=== PATIENT | female | born 1960 | race Caucasian/White ===

== ENCOUNTER 2024-02-08 22:46 | Emergency (ER) | payer MEDICARE, MEDICAID, SELFPAY ==
[2024-02-08 22:58] VITALS: BP 121/79; PULSE 94; RESP 18; TEMP 36.5; O2SAT 95; BMI 36.3
[2024-02-08 23:08] LABS: Glucose Point of Care 541 mg/dL (70-110)
[2024-02-08 23:44] VITALS: BP 143/93; PULSE 99; RESP 18; O2SAT 99
[2024-02-08 23:44] LABS: Basophils % 0.6 %; Eosinophils # 0.2 10^3/uL (0.0-0.8); Eosinophils % 2.3 %; Hematocrit 47.3 % (36-47); Lymphocytes # 3.4 10^3/uL (0.8-4.8); Lymphocytes % 48.3 %; Mean Corpuscular HGB Conc 31.9 g/dL (30-55); Mean Corpuscular Hemoglobin 27.3 pg (27-33); Mean Corpuscular Volume 85.5 fl (85-98); Mean Platelet Volume 12.5 fL (7.4-10.4); Monocytes # 0.5 10^3/uL (0.2-0.9); Monocytes % 7.2 %; Neutrophils # 2.92 10^3/uL (1.8-7.7); Neutrophils % 41.3 %; Nucleated Red Blood Cells % 0 %; Platelet Count 279 10^3/cmm (157-399); Red Blood Count 5.53 10^6/uL (3.85-5.65); Red Cell Distribution Width 12.8 % (12.1-15.1); White Blood Count 7.06 10^3/uL (3.29-11.43)
[2024-02-08 23:45] LABS: Bilirubin Urine Negative (Negative); Blood Urine Negative (Negative); Glucose Urine UA 3+ (Normal); Ketones Urine Negative (Negative); Leukocyte Esterase Urine 2+ (Negative); Nitrate Urine Negative (Negative); Protein Urine Negative (Negative); Urine Appearance Cloudy (CLEAR); Urine Color Yellow (Yellow); Urobilinogen Urine 0.2 mg/dL (Negative)
[2024-02-08 23:50] LABS: Add Urine Microscopic? YES; Bacteria Urine 4+ /hpf; Hyaline Casts Urine 1.21 /lpf; RBC Urine 0-2 /hpf (0-2); WBC Urine >100 /hpf (0-5)
[2024-02-08 23:52] LABS: Ketone (Acetest) Serum Negative (Negative)
[2024-02-09 00:01] LABS: Specific Gravity, Urine 1.032 (1.005-1.030)
[2024-02-09 00:01] LABS: Alanine Aminotransferase 11 U/L (0-33); Albumin Level 4.2 g/dL (3.5-5.2); Alkaline Phosphatase 118 U/L (35-105); Anion Gap 19.1 (5-19); Aspartate Amino Transferase 12 U/L (0-32); Blood Urea Nitrogen 27 mg/dL (8-23); Calcium 9.2 mg/dL (8.5-10.5); Carbon Dioxide 23 mmol/L (22-29); Chloride 92 mmol/L (98-107); Creatinine Clr Calc Pharmacy 67.8983; Globulin 3.3 g/dL (1.3-4.6); Glomerular Filtration Rate 49.8 mL/min (90-130); Magnesium 1.5 mg/dL (1.7-2.3); Osmolality Calculated 303 mOsm/kg (285-295); Potassium 4.1 mmol/L (3.5-5.1); Sodium 130 mmol/L (136-145); Total Bilirubin 0.3 mg/dL (0.15-1.2); Total Protein 7.5 g/dL (6.6-8.7)
[2024-02-09 00:03] VITALS: PULSE 86; O2SAT 95
[2024-02-09 00:03] LABS: Glucose 601 mg/dL (65-115)
[2024-02-09] MEDS: sodium chloride 0.9% 1,000 ML 999 ML IV (00:24)
[2024-02-09] MEDS: ciprofloxacin 500 mg Tablet PO (00:25)
[2024-02-09] MEDS: magnesium sulfate premix 1 GM/100 ML PIGGYBACK IV (00:28)
[2024-02-09 00:33] VITALS: PULSE 79; O2SAT 96
[2024-02-09] MEDS: insulin regular-human 100 units/1 mL 10 UNIT IVP (00:34)
--- NOTE | 2024-02-09 01:26 | ED_ITS ---
HPI - Recheck/Abnormal Lab/Rx 2 General: Chief Complaint: Recheck/Abnormal Lab/Rx Stated Complaint: Sugar 600 Time Seen by Provider: 02/08/24 23:30 History of Present Illness: Patient presents to the ER with elevated blood sugar. She said it was up in the 540s, she had blurred vision started yesterday and diarrhea that started today. Patient checked her blood sugar prior to arrival and it was approximately 600. Patient is on insulin as well as oral antidiabetic tablets. Related Data Previous Rx's Medication Instructions Recorded ciprofloxacin HCl 500 mg tablet 500 mg PO Q12H #20 tabs 02/09/24 Allergies Allergy/AdvReac Type Severity Reaction Status Date / Time Influenza Virus Vaccines Allergy Unknown Verified 02/08/24 23:04 Penicillins Allergy Unknown Verified 02/08/24 23:03 Review of Systems 2 General: Reports: 10 or more systems reviewed and unremarkable except in HPI and below Physical Exam 2 Const: COMMON NORMALS: no acute distress, average body habitus, patient oriented x3, no limitations, healthy appearing, alert and well nourished HENMT: COMMON NORMALS: normocephalic, atraumatic, hearing grossly normal bilaterally, external ears normal, Normal external nose present and moist oral mucous membranes HEAD & SCALP: normocephalic and atraumatic NOSE: Normal external nose present EXTERNAL EAR: Yes external ears normal Neck/C-Spine: COMMON NORMALS: no JVD Chest: COMMONS NORMALS: normal inspection of the chest and normal palpation of entire chest wall Resp: COMMON NORMALS: normal respiratory effort, No retractions, No use of accessory muscles and clear to auscultation bilaterally AUSCULTATION: clear to auscultation bilaterally Cardio: COMMON NORMALS: no JVD, regular rate, regular rhythm, S1 normal heart sound present, S2 normal heart sound present, No gallops present (Cardio), No clicks present (Cardio), No murmurs present (Cardio) and No rub (Cardio) R ATE: regular rate RHYTHM: regular rhythm HEART SOUNDS: S1 normal heart sound present and S2 normal heart sound present GI: COMMON NORMALS: Normal to inspection, nondistended, normoactive bowel sounds present, Soft to palpation, non-tender, No hepatosplenomegaly present and no masses PALPATION: Yes Soft to palpation and Yes No hepatosplenomegaly present Neuro: COMMON NORMALS: patient oriented x3 SENSORIUM/ORIENTATION: Yes alert Course 2 Vital Signs: Vital signs: Vital Signs Temperature 97.7 F 02/08/24 22:58 Pulse Rate 79 02/09/24 00:33 Respiratory Rate 18 02/08/24 23:44 Blood Pressure 143/93 02/08/24 23:44 Pulse Oximetry 96 02/09/24 00:33 Oxygen Delivery Me thod Room Air 02/08/24 23:44 MDM - Recheck/Abnormal Lab/Rx Medical Decision Making Patient was given 10 units of IV insulin as well as 1 L normal saline bolus, 1 g magnesium sulfate and Cipro 500 mg p.o. Patient had negative serum ketones, BUN/creatinine were 27 and 1.1, UA showed positive for urinary tract infection. Patient be discharged home on Cipro. Medical Records I reviewed the patient's medical records. Lab Data I reviewed the patient's lab results. 02/08/24 23:35 02/08/24 23:35 Laboratory Results WBC 7.06 10^3/uL (3.29-11.43) 02/08/24 23:35 RBC 5.53 10^6/uL (3.85-5.65) 02/08/24 23:35 Hgb 15.10 g/dL (11.27-16.99) 02/08/24 23:35 Hct 47.3 % (36-47) H 02/08/24 23:35 MCV 85.5 fl (85-98) 02/08/24 23:35 MCH 27.3 pg (27-33) 02/08/24 23:35 MCHC 31.9 g/dL (30-55) 02/08/24 23:35 RDW 12.8 % (12.1-15.1) 02/08/24 23:35 Plt Count 279 10^3/cmm (157-399) 02/08/24 23:35 MPV 12.5 fL (7.4-10.4) H 02/08/24 23:35 Neut % (Auto) 41.3 % 02/08/24 23:35 Lymph % (Auto) 48.3 % 02/08/24 23:35 [place] % (Auto) 7.2 % 02/08/24 23:35 Eos % (Auto) 2.3 % 02/08/24 23:35 Baso % (Auto) 0.6 % 02/08/24 23:35 Neut # (Auto) 2.92 10^3/uL (1.8-7.7) 02/08/24 23:35 Lymph # (Auto) 3.4 10^3/uL (0.8-4.8) 02/08/24 23:35 [place] # (Auto) 0.5 10^3/uL (0.2-0.9) 02/08/24 23:35 Eos # (Auto) 0.2 10^3/uL (0.0-0.8) 02/08/24 23:35 Baso # (Auto) 0.0 10^3/uL (0.0-0.1) 02/08/24 23:35 Nucleated RBC % (auto) 0 % 02/08/24 23:35 Nucleated RBCs # 0.0 /100WBC 02/08/24 23:35 Sodium 130 mmol/L (136-145) L 02/08/24 23:35 Potassium 4.1 mmol/L (3.5-5.1) 02/08/24 23:35 Chloride 92 mmol/L (98-107) L 02/08/24 23:35 Carbon Dioxide 23 mmol/L (22-29) 02/08/24 23:35 Anion Gap 19.1 (5-19) H 02/08/24 23:35 BUN 27 mg/dL (8-23) H 02/08/24 23:35 Creatinine 1.1 mg/dL (0.5-0.9) H 02/08/24 23:35 GFR Calculation 49.8 mL/min (90-130) L 02/08/24 23:35 Glucose 601 mg/dL (65-115) H* 02/08/24 23:35 POC Glucose 541 mg/dL (70-110) H* 02/08/24 22:57 Calculated Osmolality 303 mOsm/kg (285-295) H 02/08/24 23:35 Calcium 9.2 mg/dL (8.5-10.5) 02/08/24 23:35 Magnesium 1.5 mg/dL (1.7-2.3) L 02/08/24 23:35 Total Bilirubin 0.3 mg/dL (0.15-1.2) 02/08/24 23:35 AST 12 U/L (0-32) 02/08/24 23:35 ALT 11 U/L (0-33) 02/08/24 23:35 Alkaline Phosphatase 118 U/L (35-105) H 02/08/24 23:35 Total Protein 7.5 g/dL (6.6-8.7) 02/08/24 23:35 Albumin 4.2 g/dL (3.5-5.2) 02/08/24 23:35 Globulin 3.3 g/dL (1.3-4.6) 02/08/24 23:35 Urine Color Yellow (Yellow) 02/08/24 23:30 Urine Appearance Cloudy (CLEAR) A 02/08/24 23:30 Urine pH 5.0 (5-7) 02/08/24 23:30 Ur Specific [place] 1.032 (1.005-1.030) H 02/08/24 23:30 Urine Protein Negative (Negative) 02/08/24 23:30 Urine Glucose (UA) 3+ (Normal) H 02/08/24 23:30 Urine Ketones Negative (Negative) 02/08/24 23:30 Urine Blood Negative (Negative) 02/08/24 23:30 Urine Nitrate Negative (Negative) 02/08/24 23:30 Urine Bilirubin Negative (Negative) 02/08/24 23:30 Urine Urobilinogen 0.2 mg/dL (Negative) 02/08/24 23:30 Ur Leukocyte Esterase 2+ (Negative) A 02/08/24 23:30 Urine RBC 0-2 /hpf (0-2) 02/08/24 23:30 Urine WBC >100 /hpf (0-5) H 02/08/24 23:30 Ur Squamous Epith Cells 11-20 /hpf (0-5) 02/08/24 23:30 Amorphous Sediment Not Reportable 02/08/24 23:30 Urine Bacteria 4+ /hpf (NONE) H 02/08/24 23:30 Hyaline Casts 1.21 /lpf 02/08/24 23:30 Serum Ketones Negative (Negative) 02/08/24 23:35 No radiology studies performed this visit Discharge Plan Discharge Patient Disposition: Home Clinical Impression: Acute lower urinary tract infection, Hyperglycemia due to diabetes mellitus Condition: Stable Prescriptions: New ciprofloxacin HCl 500 mg tablet 500 mg PO Q12H Qty: 20 0RF Discharge Orders: Discharge ED (Routine); Ordered 02/09/24 Ordered By: Tanvir Flores Referrals: Elyssa Castillo DO [Primary Care Provider] - 1 week Patient Instructions: Diabetic Hyperglycemia (ED), Urinary Tract Infection - Women Activity Restrictions/Additional Instructions: Magnesium was mildly low, your urine showed you have a urinary tract infection, you are given 10 additional units of IV insulin to help lower your blood sugar. Please take all your antibiotics as directed. Please follow-up with your family practice physician within the next 7 days for further evaluation and treatment. Coding Level of Care Code ED Drilling Supervisor for Lindy Pablo
[2024-02-09 01:47] VITALS: BP 110/64; PULSE 81; O2SAT 96
[2024-02-09 01:49] LABS: Glucose Point of Care 264 mg/dL (70-110)
[2024-02-09 02:00] VITALS: BP 110/64; PULSE 81; O2SAT 96
== END 2024-02-09 02:01 | disposition home or self-care (01) ==
PROVIDERS: Emergency Provider Emergency Medicine; PCP Family Medicine
DX: E11.65 Type 2 diabetes mellitus with hyperglycemia (principal); N39.0 Urinary tract infection, site not specified
CPT/HCPCS: 36415; 36416; 80053; 81001; 82009; 82962; 83735; 85025; 96374; 96375; 99284; J1815; J3475; J7030

== ENCOUNTER 2024-02-09 18:25 | Emergency (ER) | payer MEDICARE, MEDICAID, SELFPAY ==
[2024-02-09 18:47] VITALS: BP 136/84; PULSE 91; RESP 16; TEMP 36.4; O2SAT 95; BMI 36.1
[2024-02-09 21:04] LABS: Basophils % 0.4 %; Eosinophils # 0.2 10^3/uL (0.0-0.8); Eosinophils % 2.3 %; Lymphocytes % 49.3 %; Mean Corpuscular HGB Conc 32.4 g/dL (30-55); Mean Corpuscular Hemoglobin 27.2 pg (27-33); Monocytes # 0.5 10^3/uL (0.2-0.9); Monocytes % 6.5 %; Neutrophils # 3.34 10^3/uL (1.8-7.7); Neutrophils % 41.3 %; Nucleated Red Blood Cells % 0 %; Platelet Count 288 10^3/cmm (157-399); Red Blood Count 5.36 10^6/uL (3.85-5.65); Red Cell Distribution Width 12.9 % (12.1-15.1); White Blood Count 8.11 10^3/uL (3.29-11.43)
[2024-02-09 21:17] LABS: Ketone (Acetest) Serum Negative (Negative)
[2024-02-09 21:20] LABS: Anion Gap 18.3 (5-19); Blood Urea Nitrogen 23 mg/dL (8-23); Calcium 9.3 mg/dL (8.5-10.5); Carbon Dioxide 24 mmol/L (22-29); Chloride 95 mmol/L (98-107); Creatinine Clr Calc Pharmacy 93.1591; Glucose 390 mg/dL (65-115); Osmolality Calculated 296 mOsm/kg (285-295); Potassium 4.3 mmol/L (3.5-5.1); Sodium 133 mmol/L (136-145)
[2024-02-09 21:50] VITALS: BP 154/71; PULSE 78; O2SAT 95
[2024-02-09 22:13] LABS: Glucose Point of Care 386 mg/dL (70-110)
[2024-02-09 23:00] VITALS: BP 167/92; PULSE 85; O2SAT 97
--- NOTE | 2024-02-09 23:01 | ED_ITS ---
HPI - General Adult 2 General: Chief complaint: General Medical Stated complaint: Sugar Rising Time Seen by Provider: 02/09/24 22:58 History of Present Illness: Patient presents back to the ER with hyperglycemia. Patient was seen last night for the same instance as well as a urinary tract infection. Patient now states she is no longer taking any insulin at all only metformin. She is on for sure why her doctor took her off of it. Patient was given 10 units IV insulin last night and improved her sugar remarkedly. Patient will be given 5 units subcu today as her sugars as high. Related Data Previous Rx's Medication Instructions Recorded ciprofloxacin HCl 500 mg tablet 500 mg PO Q12H #20 tabs 02/09/24 insulin glargine 100 unit/mL (3 10 unit (0.1 mL) SUBCUT QAM #15 mL 02/09/24 mL) subcutaneous pen (Lantus Solostar U-100 Insulin) Allergies Allergy/AdvReac Type Severity Reaction Status Date / Time Influenza Virus Vaccines Allergy Unknown Verified 02/08/24 23:04 Penicillins Allergy Unknown Verified 02/08/24 23:03 Review of Systems 2 General: Reports: 10 or more systems reviewed and unremarkable except in HPI and below Physical Exam 2 Const: COMMON NORMALS: no acute distress, average body habitus, patient oriented x3, no limitations, healthy appearing, alert and well nourished Neck/C-Spine: COMMON NORMALS: no JVD Chest: COMMONS NORMALS: normal inspection of the chest and normal palpation of entire chest wall Resp: COMMON NORMALS: normal respiratory effort, No retractions, No use of accessory muscles and clear to auscultation bilaterally AUSCULTATION: clear to auscultation bilaterally Cardio: COMMON NORMALS: no JVD, regular rate, regular rhythm, S1 normal heart sound present, S2 normal heart sound present, No gallops present (Cardio), No clicks present (Cardio), No murmurs present (Cardio) and No rub (Cardio) R ATE: regular rate RHYTHM: regular rhythm HEART SOUNDS: S1 normal heart sound present and S2 normal heart sound present GI: COMMON NORMALS: Normal to inspection, nondistended, normoactive bowel sounds present, Soft to palpation, non-tender, No hepatosplenomegaly present and no masses PALPATION: Yes Soft to palpation and Yes No hepatosplenomegaly present Neuro: COMMON NORMALS: patient oriented x3 SENSORIUM/ORIENTATION: Yes alert Course 2 Vital Signs: Vital signs: Vital Signs Temperature 97.6 F 02/09/24 18:47 Pulse Rate 91 02/09/24 18:47 Respiratory Rate 16 02/09/24 18:47 Blood Pressure 136/84 02/09/24 18:47 Pulse Oximetry 95 02/09/24 18:47 Oxygen Delivery Me thod Room Air 02/09/24 18:47 MDM - General Adult Medical Decision Making Patient presents to the ER with elevated blood sugar upon further questioning patient says she is no longer taking her insulin. We will restart her on her insulin. Rest of her lab work was essentially unremarkable. Patient should continue her Cipro that was prescribed last night. We will start her back to 10 units daily. Medical Records I reviewed the patient's medical records. Lab Data I reviewed the patient's lab results. 02/09/24 20:58 02/09/24 20:58 Laboratory Results WBC 8.11 10^3/uL (3.29-11.43) 02/09/24 20:58 RBC 5.36 10^6/uL (3.85-5.65) 02/09/24 20:58 Hgb 14.60 g/dL (11.27-16.99) 02/09/24 20:58 Hct 45.0 % (36-47) 02/09/24 20:58 MCV 84.0 fl (85-98) L 02/09/24 20:58 MCH 27.2 pg (27-33) 02/09/24 20:58 MCHC 32.4 g/dL (30-55) 02/09/24 20:58 RDW 12.9 % (12.1-15.1) 02/09/24 20:58 Plt Count 288 10^3/cmm (157-399) 02/09/24 20:58 MPV 12.0 fL (7.4-10.4) H 02/09/24 20:58 Neut % (Auto) 41.3 % 02/09/24 20:58 Lymph % (Auto) 49.3 % 02/09/24 20:58 [place] % (Auto) 6.5 % 02/09/24 20:58 Eos % (Auto) 2.3 % 02/09/24 20:58 Baso % (Auto) 0.4 % 02/09/24 20:58 Neut # (Auto) 3.34 10^3/uL (1.8-7.7) 02/09/24 20:58 Lymph # (Auto) 4.0 10^3/uL (0.8-4.8) 02/09/24 20:58 [place] # (Auto) 0.5 10^3/uL (0.2-0.9) 02/09/24 20:58 Eos # (Auto) 0.2 10^3/uL (0.0-0.8) 02/09/24 20:58 Baso # (Auto) 0.0 10^3/uL (0.0-0.1) 02/09/24 20:58 Nucleated RBC % (auto) 0 % 02/09/24 20:58 Nucleated RBCs # 0.0 /100WBC 02/09/24 20:58 Sodium 133 mmol/L (136-145) L 02/09/24 20:58 Potassium 4.3 mmol/L (3.5-5.1) 02/09/24 20:58 Chloride 95 mmol/L (98-107) L 02/09/24 20:58 Carbon Dioxide 24 mmol/L (22-29) 02/09/24 20:58 Anion Gap 18.3 (5-19) 02/09/24 20:58 BUN 23 mg/dL (8-23) 02/09/24 20:58 Creatinine 0.8 mg/dL (0.5-0.9) 02/09/24 20:58 GFR Calculation 72.0 mL/min (90-130) L 02/09/24 20:58 Glucose 390 mg/dL (65-115) H 02/09/24 20:58 POC Glucose 386 mg/dL (70-110) H 02/09/24 18:47 Calculated Osmolality 296 mOsm/kg (285-295) H 02/09/24 20:58 Calcium 9.3 mg/dL (8.5-10.5) 02/09/24 20:58 Serum Ketones Negative (Negative) 02/09/24 20:58 No radiology studies performed this visit Discharge Plan Discharge Patient Disposition: Home Clinical Impression: Hyperglycemia due to diabetes mellitus, Acute lower urinary tract infection Condition: Stable Prescriptions: New insulin glargine [Lantus Solostar U-100 Insulin] 100 unit/mL (3 mL) insulin pen 10 unit SUBCUT QAM Qty: 15 0RF No Action ciprofloxacin HCl 500 mg tablet 500 mg PO Q12H Qty: 20 0RF Discharge Orders: Discharge ED (Routine); Ordered 02/09/24 Ordered By: Tanvir Flores Referrals: Elyssa Castillo, [Primary Care Provider] - 1 week Patient Instructions: Diabetic Hyperglycemia (ED), What to Do if Your Blood Sugar is Low (ED) Activity Restrictions/Additional Instructions: We have restarted you on Lantus which is a long-acting insulin. Please follow instructions and inject 10 units subcu daily, please take your sugars daily. Please follow-up with your family practice physician for further evaluation and treatment. Coding Level of Care Code ED Corporate Financial Analyst for Lindy Pablo
[2024-02-09] MEDS: insulin lispro 100 unit/1 mL SUBCUT (23:12)
[2024-02-09 23:17] LABS: Glucose Point of Care 316 mg/dL (70-110)
[2024-02-09 23:28] VITALS: BP 160/83; PULSE 75; O2SAT 96
== END 2024-02-09 23:29 | disposition home or self-care (01) ==
PROVIDERS: Emergency Medicine; Emergency Provider Emergency Medicine; PCP Family Medicine
DX: E11.65 Type 2 diabetes mellitus with hyperglycemia (principal); N39.0 Urinary tract infection, site not specified; Z79.84 Long term (current) use of oral hypoglycemic drugs
CPT/HCPCS: 36415; 36416; 80048; 82009; 82962; 85025; 96372; 99284; J1815